=== PATIENT | female | born 1960 | race Caucasian/White ===

== ENCOUNTER → 2016-12-23 16:20 | Outpatient (CLI) | payer OTHER ==
[2015-02-12 07:42] VITALS: BMI 22.3
[~2016-12-23 16:20] MED LIST: CYCLOBENZAPRINE10 MG PO; ESTRACE1 MG PO; KLONOPIN0.5 MG PO; LAMICTAL100 MG PO; LAMICTAL200 MG PO; LOTREL 10-40 M1 EACH PO; PROZAC40 MG PO
== END | disposition home or self-care (01) ==
LOC: D.MAMMO 14:30
DX: Z12.31 Encounter for screening mammogram for malignant neoplasm of breast (principal)

== ENCOUNTER 2017-01-08 07:24 | Emergency (ER) | payer OTHER ==
[2015-02-12 07:42] VITALS: BMI 22.3
[2017-01-08 08:15] LABS: APPEARANCE HAZY (CLEAR); BACTERIA MODERATE /hpf (NONE SEEN); BILIRUBIN NEGATIVE (NEGATIVE); COLOR DK YELLOW (YELLOW); GLUCOSE NEGATIVE (NEGATIVE); KETONE NEGATIVE (NEGATIVE); LEUKOCYTE ESTERASE TRACE (NEGATIVE); MUCUS <1+ /lpf (NONE SEEN); NITRITE NEGATIVE (NEGATIVE); PROTEIN 1+ mg/dL (NEGATIVE); RED CELLS - URINE 0-5 /hpf (0-5); SPECIFIC GRAVITY 1.015 (1.005-1.020); UROBILINOGEN NORMAL (NORMAL)
[2017-01-08 08:24] LABS: BASOPHILS 0.2 % (0-2); EOSINOPHILS 0.8 % (0-7); HEMATOCRIT 41.6 % (36.0-48.0); HEMOGLOBIN 13.8 g/dL (12-16); IMMATURE GRANULOCYTES 0.2 % (0-5); MCH 32.4 pg (26.0-34.0); MCHC 33.2 g/dL (31.0-37.0); MCV 97.7 fL (80.0-100.0); MEAN PLATELET VOLUME 10.6 fL (7.4-10.4); MONOCYTES 5.8 % (2-11); PLATELET COUNT 279 10x3/uL (130-400); RBC 4.26 10x6/uL (4.00-5.40); RDW 13.6 % (11.5-14.5)
[2017-01-08 08:39] LABS: ALBUMIN 3.8 g/dL (3.4-5.0); BILIRUBIN - TOTAL 0.29 mg/dL (0.2-1.3); CARBON DIOXIDE 24.7 mmol/L (21.0-32.0); CREATININE - SERUM 1.1 mg/dL (0.6-1.3); POTASSIUM - SERUM 3.7 mmol/L (3.5-5.1); PROTEIN - SERUM 7.5 g/dL (6.4-8.2)
== END 2017-01-08 09:37 | disposition home or self-care (01) ==
LOC: D.ER 07:24
PROVIDERS: Emergency Medicine
DX: K29.00 Acute gastritis without bleeding (principal); I10 Essential (primary) hypertension; F17.200 Nicotine dependence, unspecified, uncomplicated

== ENCOUNTER → 2017-01-13 12:52 | Outpatient (CLI) | payer MEDICARE ==
[2015-02-12 07:42] VITALS: BMI 22.3
== END | disposition home or self-care (01) ==
LOC: D.CT 12:52
DX: R10.9 Unspecified abdominal pain (principal)

== ENCOUNTER → 2017-01-30 17:00 | Outpatient (CLI) | payer MEDICARE ==
[2015-02-12 07:42] VITALS: BMI 22.3
== END | disposition home or self-care (01) ==
LOC: D.MAMMO 14:00
DX: R92.8 Other abnormal and inconclusive findings on diagnostic imaging of breast (principal)

== ENCOUNTER 2017-11-16 13:57 | Emergency (ER) | payer MEDICARE ==
[2015-02-12 07:42] VITALS: BMI 22.3
[2017-11-16 14:36] LABS: BASOPHILS 0.1 % (0-2); EOSINOPHILS 0.5 % (0-7); HEMATOCRIT 38.9 % (36.0-48.0); HEMOGLOBIN 13.2 g/dL (12-16); IMMATURE GRANULOCYTES 0.3 % (0-5); LYMPHOCYTES 15.9 % (15-50); MCH 31.7 pg (26.0-34.0); MCHC 33.9 g/dL (31.0-37.0); MCV 93.5 fL (80.0-100.0); MEAN PLATELET VOLUME 10.8 fL (7.4-10.4); MONOCYTES 7.7 % (2-11); NEUTROPHILS 75.5 % (40-80); PLATELET COUNT 303 10x3/uL (130-400); RBC 4.16 10x6/uL (4.00-5.40); RDW 13.9 % (11.5-14.5); WBC 17.2 10x3/uL (4.8-10.8)
[2017-11-16 14:52] LABS: ALBUMIN 3.7 g/dL (3.4-5.0); ANION GAP 13.3 mmol/L (8-16); BILIRUBIN - TOTAL 0.4 mg/dL (0.2-1.3); CARBON DIOXIDE 26.8 mmol/L (21.0-32.0); CREATININE - SERUM 1.1 mg/dL (0.6-1.3); POTASSIUM - SERUM 3.1 mmol/L (3.5-5.1); PROTEIN - SERUM 7.2 g/dL (6.4-8.2)
[2017-11-16 15:01] LABS: APPEARANCE CLOUDY (CLEAR); BILIRUBIN NEGATIVE (NEGATIVE); COLOR YELLOW (YELLOW); GLUCOSE NEGATIVE (NEGATIVE); KETONE NEGATIVE (NEGATIVE); NITRITE NEGATIVE (NEGATIVE); PROTEIN TRACE mg/dL (NEGATIVE); SPECIFIC GRAVITY 1.005 (1.005-1.020); UROBILINOGEN NORMAL (NORMAL)
[2017-11-16 15:03] LABS: BACTERIA FEW /hpf (NONE SEEN); RED CELLS - URINE 0-5 /hpf (0-5)
[2017-11-16 15:11] LABS: UDS - AMPHET NEGATIVE QUAL (NEGATIVE); UDS - BARB NEGATIVE QUAL (NEGATIVE); UDS - BENZO POSITIVE QUAL (NEGATIVE); UDS - COCAINE NEGATIVE QUAL (NEGATIVE); UDS - OPIATE POSITIVE QUAL (NEGATIVE); UDS - PCP NEGATIVE QUAL (NEGATIVE); UDS - THC NEGATIVE QUAL (NEGATIVE)
[2017-11-16 16:04] LABS: CREATINE KINASE 50 UL (21-215); LIPASE 97 U/L (73-393); PRO BNP 977 pg/mL (0-125); TROPONIN-I < 0.017 ng/mL (0.000-0.060)
== END 2017-11-16 15:59 | disposition home or self-care (01) ==
LOC: D.ER 13:57
PROVIDERS: Family Medicine
DX: T67.5XXA Heat exhaustion, unspecified, initial encounter (principal); X58.XXXA Exposure to other specified factors, initial encounter; Y93.9 Activity, unspecified; Y92.9 Unspecified place or not applicable; R53.1 Weakness; I10 Essential (primary) hypertension

== ENCOUNTER 2019-12-01 15:03 | Emergency (ER) | payer MEDICARE ==
[~2019-12-01] VITALS: Ht 170.2 cm; Wt 67.7 kg
[2019-12-01 15:08] VITALS: Ht 170.2 cm; Wt 67.7 kg
[2019-12-01] MEDS ORDERED: LAMICTAL200 M1 PO (15:10)
[2019-12-01] MEDS ORDERED: OMEPRAZOLE40 MG PO (15:11)
[2019-12-01] MEDS ORDERED: BACLOFEN20 M1 PO (15:11)
[2019-12-01] MEDS ORDERED: NEURONTIN 300300 MG PO (15:12)
[2019-12-01] MEDS ORDERED: FEXOFENADINE H180 MG PO (15:12)
[2019-12-01] MEDS ORDERED: FOLIC ACID1 MG PO (15:12)
[2019-12-01] MEDS ORDERED: HYDROCODON-ACE1 EA10 PO (15:12)
[2019-12-01] MEDS ORDERED: PHENERGAN25 M1 PO (15:13)
[2019-12-01] MEDS ORDERED: TREXALL5 MG SQ (15:14)
[2019-12-01] MEDS ORDERED: DIFLUCAN150 MG PO (15:14)
[2019-12-01] MEDS ORDERED: CARAFATE1 G PO (15:14)
[2019-12-01] MEDS ORDERED: LASIX40 MG PO (15:15)
[2019-12-01] MEDS ORDERED: AUGMENTIN 875-11 TAB PO (15:15)
[2019-12-01] MEDS ORDERED: ALBUTEROL SULF8.5 GM INH (15:15)
[2019-12-01] MEDS ORDERED: KLOR-CON M2020 MEQ PO (15:16)
[2019-12-01 15:33] LABS: BASOPHILS 0.3 % (0-2); EOSINOPHILS 1.7 % (0-7); HEMATOCRIT 39.7 % (36.0-48.0); HEMOGLOBIN 12.7 g/dL (12-16); IMMATURE GRANULOCYTES 0.2 % (0-5); MCH 30.9 pg (26.0-34.0); MCV 96.6 fL (80.0-100.0); MEAN PLATELET VOLUME 10.1 fL (7.4-10.4); MONOCYTES 6.8 % (2-11); PLATELET COUNT 295 10x3/uL (130-400); RBC 4.11 10x6/uL (4.00-5.40); RDW 14.3 % (11.5-14.5); WBC 8.6 10x3/uL (4.8-10.8)
[2019-12-01 15:48] LABS: CALC OSMOLALITY 279 mosm/kg (275-300); CALCIUM 9.2 mg/dL (8.5-10.1); CARBON DIOXIDE 26.4 mmol/L (21.0-32.0); CHLORIDE - SERUM 104 mmol/L (98-107); CREATININE - SERUM 0.7 mg/dL (0.6-1.3); GLUCOSE 102 mg/dL (74-106); POTASSIUM - SERUM 3.7 mmol/L (3.5-5.1); SODIUM 141 mmol/L (136-145); UREA NITROGEN 9 mg/dL (7-18); eGFR NON AFRICAN AMERICAN 90 mL/min (90-120)
[2019-12-01 15:51] LABS: INR 0.95 (0.85-1.17); PROTIME 12.6 SECONDS (11.6-15.0)
[2019-12-01 16:01] LABS: ALBUMIN 3.7 g/dL (3.4-5.0); ALKALINE PHOSPHATASE 68 U/L (30-120); ALT (SGPT) 17 U/L (10-68); BILIRUBIN - TOTAL 0.29 mg/dL (0.2-1.3); PRO BNP 537 pg/mL (0-125); PROTEIN - SERUM 7.5 g/dL (6.4-8.2)
[2019-12-01 16:09] LABS: CKMB 1.1 U/L (0.0-3.6); CREATINE KINASE 123 UL (21-215); TROPONIN-I 0.016 ng/mL (0.000-0.060)
[2019-12-01 17:57] VITALS: BP 130/78
== END 2019-12-01 17:58 | disposition home or self-care (01) ==
LOC: D.ER 15:03
PROVIDERS: Family Medicine
DX: R19.00 Intra-abdominal and pelvic swelling, mass and lump, unspecified site (principal); R60.0 Localized edema; I10 Essential (primary) hypertension; Z72.0 Tobacco use

== ENCOUNTER 2019-12-07 14:52 | Observation (INO) | payer MEDICARE ==
[~2019-12-07] VITALS: Ht 170.2 cm; Wt 81.8 kg
[~2019-12-07 14:52] MED LIST changes: +ALBUTEROL SULF8.5 GM INH; +AUGMENTIN 875-11 TAB PO; +BACLOFEN20 M1 PO; +CARAFATE1 G PO; +DIFLUCAN150 MG PO; +FEXOFENADINE H180 MG PO; +FOLIC ACID1 MG PO; +HYDROCODON-ACE1 EA10 PO; +KLOR-CON M2020 MEQ PO; +LAMICTAL200 M1 PO; +LASIX40 MG PO; +NEURONTIN 300300 MG PO; +OMEPRAZOLE40 MG PO; +PHENERGAN25 M1 PO; +TREXALL5 MG SQ
--- NOTE | 2019-12-07 15:30 | NUR ---
PT LEFT ED VIA STRETCHER FOR CT.
[2019-12-07 15:32] LABS: BASOPHILS 0.2 % (0-2); EOSINOPHILS 1.3 % (0-7); HEMATOCRIT 36.9 % (36.0-48.0); HEMOGLOBIN 11.9 g/dL (12-16); IMMATURE GRANULOCYTES 0.2 % (0-5); LYMPHOCYTES 24.6 % (15-50); MCHC 32.2 g/dL (31.0-37.0); MCV 96.1 fL (80.0-100.0); MEAN PLATELET VOLUME 10.4 fL (7.4-10.4); MONOCYTES 7.4 % (2-11); NEUTROPHILS 66.3 % (40-80); PLATELET COUNT 312 10x3/uL (130-400); RBC 3.84 10x6/uL (4.00-5.40); RDW 14.2 % (11.5-14.5); WBC 9.8 10x3/uL (4.8-10.8)
[2019-12-07 15:41] LABS: APTT 32.4 SECONDS (22.8-39.4); INR 0.97 (0.85-1.17); PROTIME 12.8 SECONDS (11.6-15.0)
--- NOTE | 2019-12-07 15:44 | NUR ---
PT RETURNED TO ED VIA STRETCHER FROM CT
[2019-12-07 15:59] LABS: ALBUMIN 3.9 g/dL (3.4-5.0); ALKALINE PHOSPHATASE 62 U/L (30-120); ALT (SGPT) 16 U/L (10-68); BILIRUBIN - TOTAL 0.32 mg/dL (0.2-1.3); CALC OSMOLALITY 275 mosm/kg (275-300); CALCIUM 9.6 mg/dL (8.5-10.1); CARBON DIOXIDE 24.6 mmol/L (21.0-32.0); CHLORIDE - SERUM 102 mmol/L (98-107); CKMB 0.8 U/L (0.0-3.6); CREATINE KINASE 48 UL (21-215); CREATININE - SERUM 1.1 mg/dL (0.6-1.3); GLUCOSE 109 mg/dL (74-106); MAGNESIUM - SERUM 2.1 mg/dL (1.8-2.4); PRO BNP 154 pg/mL (0-125); PROTEIN - SERUM 7.4 g/dL (6.4-8.2); SODIUM 137 mmol/L (136-145); TROPONIN-I < 0.017 ng/mL (0.000-0.060); UREA NITROGEN 15 mg/dL (7-18); eGFR NON AFRICAN AMERICAN 54 mL/min (90-120)
[2019-12-07 16:04] LABS: POTASSIUM - SERUM 2.8 mmol/L (3.5-5.1)
--- NOTE | 2019-12-07 16:29 | NUR ---
IN/OUT CATH PERFORMED. PT TOLERATED WELL. URINE SENT TO LAB
[2019-12-07 16:30] LABS: BILIRUBIN NEGATIVE (NEGATIVE); GLUCOSE NEGATIVE (NEGATIVE); KETONE NEGATIVE (NEGATIVE); NITRITE NEGATIVE (NEGATIVE); UROBILINOGEN NORMAL (NORMAL)
--- NOTE | 2019-12-07 17:13 | NUR ---
PT LEFT ED VIA STRETCHER FOR CTA
--- NOTE | 2019-12-07 17:29 | NUR ---
PT RETURNED TO ED VIA STRETCHER.
--- NOTE | 2019-12-07 18:54 | NUR ---
PT IS ASKING FOR A CATHETER [facility] [employer], EXPLAINED THAT PASCUAL WILL NEED TO SEE HER FIRST AND THEN RESTART MEDICATIONS. FAR A CATHETER, PT KNOW WHEN SHE NEEDS TO GO AND I CAN NOT JUSTIFY A REASON FOR A CATHETER, CONTINUE WITH PLAN OF CARE
[2019-12-07 20:00] VITALS: BP 115/72
[2019-12-07 20:27] LABS: % SATURATION 8 % (15-55); IRON 31 ug/dl (35-150); TOTAL IRON BIND CAPACITY 348 ug/dl (260-445); UNSAT IRON BIND CAPACITY 317 ug/dl (150-375)
[2019-12-08] VITALS (7 sets, daily range): BP systolic 98–149; BP diastolic 57–76; Ht 170.2 cm; Wt 81.8 kg
--- NOTE | 2019-12-08 01:16 | NUR ---
PATIENT COMPLAINING OF URINE RETENTION AND URINE LEAKING WHEN NOT TRYING TO PEE. PATIENT HAS HAD ANOUT 50ML OF URINE OUTPUT VIA EXTERNAL FEMALE CATHETER SINCE 190. CALL DOCTOR AND RECIEVED ORDERS TO PUT IN PINA CATHETER. 900ML INITIAL OUTPUT. WILL CONTINUE TO MONITOR.
[2019-12-08 04:46] LABS: UDS - AMPHET NEGATIVE QUAL (NEGATIVE); UDS - BARB NEGATIVE QUAL (NEGATIVE); UDS - BENZO NEGATIVE QUAL (NEGATIVE); UDS - COCAINE NEGATIVE QUAL (NEGATIVE); UDS - OPIATE POSITIVE QUAL (NEGATIVE); UDS - PCP NEGATIVE QUAL (NEGATIVE); UDS - THC NEGATIVE QUAL (NEGATIVE)
[2019-12-08 05:14] LABS: BASOPHILS 0.4 % (0-2); HEMATOCRIT 34.4 % (36.0-48.0); HEMOGLOBIN 10.9 g/dL (12-16); LYMPHOCYTES 46.2 % (15-50); MCH 30.7 pg (26.0-34.0); MCHC 31.7 g/dL (31.0-37.0); MCV 96.9 fL (80.0-100.0); MEAN PLATELET VOLUME 10.7 fL (7.4-10.4); MONOCYTES 8.5 % (2-11); NEUTROPHILS 41.9 % (40-80); PLATELET COUNT 273 10x3/uL (130-400); RBC 3.55 10x6/uL (4.00-5.40); RDW 14.2 % (11.5-14.5)
[2019-12-08 05:27] LABS: WBC 7.3 10x3/uL (4.8-10.8)
[2019-12-08 05:48] LABS: ALBUMIN 3.1 g/dL (3.4-5.0); ALKALINE PHOSPHATASE 46 U/L (30-120); ALT (SGPT) 14 U/L (10-68); BILIRUBIN - TOTAL 0.28 mg/dL (0.2-1.3); CALC OSMOLALITY 280 mosm/kg (275-300); CALCIUM 8.2 mg/dL (8.5-10.1); CARBON DIOXIDE 27.4 mmol/L (21.0-32.0); CHLORIDE - SERUM 109 mmol/L (98-107); CKMB 0.9 U/L (0.0-3.6); CREATINE KINASE 150 UL (21-215); CREATININE - SERUM 0.9 mg/dL (0.6-1.3); GLUCOSE 86 mg/dL (74-106); POTASSIUM - SERUM 3.2 mmol/L (3.5-5.1); PROTEIN - SERUM 5.9 g/dL (6.4-8.2); SODIUM 142 mmol/L (136-145); TROPONIN-I 0.024 ng/mL (0.000-0.060); eGFR NON AFRICAN AMERICAN 68 mL/min (90-120)
[2019-12-08 05:49] LABS: UREA NITROGEN 10 mg/dL (7-18)
--- NOTE | 2019-12-08 11:10 | NUR ---
Pt Awake A&O X4 watching tv. Pt. complains of 7/10 pain, in right shoulder and neck. Gave pain meds and educated pt. about next dose per MD. PIV in L AC infusing NS and 20k+ @ 125ml/hr. Has FC, patent to gravity, draining clear, yellow, odorless urine. Pt states that weakness is improved from yesterday in all extremities. Demonstrates ability to lift arms and legs. 3/5 director of infection control strength, limited ROM in all extremities. Pt. is wearing SCDs. Pt was tearful and expressed concern about health declining and limited abilities. Bed low. CL in reach. Pt. verbalized understanding and denies needs. Will CTM.
--- NOTE | 2019-12-08 15:40 | NUR ---
SPOKE WITH SEPIDEH CANAS APN REGARDING PT POTASSIUM LEVEL AND DISCHARGE PLANS. REMINDED SEPIDEH OF PT BEING CATHED DUE TO URINARY RETENTION LAST NIGHT. SEPIDEH STATED TO HOLD D/C UNTIL TOMORROW, START BLADDER TRAINING WITH F/C AND D/C F/C.
--- NOTE | 2019-12-08 18:10 | NUR ---
1720 unclamped FC for bladder training. 1805 output was 400ml, clear, yellow, odorless urine. 1810 clamped FC for bladder training.
[2019-12-09 00:16] VITALS: BP 147/69
--- NOTE | 2019-12-09 00:30 | NUR ---
IV L AC INFILTRATED. FIRST ATTEMPT TO PLACE IV IN R FA SUCCESSFUL. 22G IN R FA W/ NS W/20K@75.
[2019-12-09 04:38] LABS: BASOPHILS 0.2 % (0-2); EOSINOPHILS 2.4 % (0-7); HEMATOCRIT 39.3 % (36.0-48.0); HEMOGLOBIN 12.4 g/dL (12-16); IMMATURE GRANULOCYTES 0.3 % (0-5); MCH 30.5 pg (26.0-34.0); MCHC 31.6 g/dL (31.0-37.0); MCV 96.8 fL (80.0-100.0); MEAN PLATELET VOLUME 11.2 fL (7.4-10.4); MONOCYTES 7.3 % (2-11); NEUTROPHILS 64.8 % (40-80); PLATELET COUNT 318 10x3/uL (130-400); RBC 4.06 10x6/uL (4.00-5.40); RDW 14.1 % (11.5-14.5)
[2019-12-09 05:03] LABS: WBC 12.5 10x3/uL (4.8-10.8)
[2019-12-09 05:13] LABS: ALBUMIN 3.5 g/dL (3.4-5.0); ALKALINE PHOSPHATASE 63 U/L (30-120); BILIRUBIN - TOTAL 0.18 mg/dL (0.2-1.3); CALCIUM 8.9 mg/dL (8.5-10.1); CARBON DIOXIDE 25.3 mmol/L (21.0-32.0); CHLORIDE - SERUM 107 mmol/L (98-107); CREATININE - SERUM 0.8 mg/dL (0.6-1.3); GLUCOSE 95 mg/dL (74-106); MAGNESIUM - SERUM 1.9 mg/dL (1.8-2.4); POTASSIUM - SERUM 3.5 mmol/L (3.5-5.1); PROTEIN - SERUM 7.2 g/dL (6.4-8.2); SODIUM 142 mmol/L (136-145); eGFR NON AFRICAN AMERICAN 77 mL/min (90-120)
[2019-12-09 05:22] LABS: ALT (SGPT) 19 U/L (10-68); CALC OSMOLALITY 279 mosm/kg (275-300); UREA NITROGEN 3 mg/dL (7-18)
[2019-12-09 06:17] VITALS: BP 127/74
[2019-12-09 08:11] VITALS: BP 138/90
--- NOTE | 2019-12-09 08:23 | NUR ---
SHE IS C/O NAUSEA, SHE STATES "I WAS DOING THIS AT HOME TOO". NO NEW ISSUES. THE CALL LIGHT WITHIN REACH.
[2019-12-09] MEDS ORDERED: OMEPRAZOLE40 MG PO (10:36)
--- NOTE | 2019-12-09 10:56 | NUR ---
SHE WANTED HER IV OUT. I REMOVED HER PIV. SHE HAS DISCHARGE ORDERS NOW.
--- NOTE | 2019-12-09 11:43 | NUR ---
OT NOTE: PT REFUSES OT EVAL; PT STATES THAT SHE IS DOING FINE AND PLANNING TO GO HOME TODAY. STATES THAT SHE IS AMBULATING IN ROOM AND IS NO LONGER HAVING ANY PROBLEMS. OSIEL VANEGAS, OTR/L
--- NOTE | 2019-12-09 15:15 | NUR ---
SHE WAS TAKEN DOWNSTRAIRS VIA WHEELCHAIR. PAPER WORK GONE OVER WITH, QUESTIONS ANSWERED.
== END 2019-12-09 15:16 | disposition home or self-care (01) ==
LOC: D.ER 14:52 → D.MS 17:00 → OBSVTIME 17:24 → D.MS 12-09 15:16
PROVIDERS: Emergency Medicine; Family Medicine; ADMIT Family Medicine; ATTEND Family Medicine
DX: E87.6 Hypokalemia (principal); R53.1 Weakness; R42 Dizziness and giddiness; D64.9 Anemia, unspecified; I10 Essential (primary) hypertension; I35.1 Nonrheumatic aortic (valve) insufficiency; E78.5 Hyperlipidemia, unspecified; K21.9 Gastro-esophageal reflux disease without esophagitis; M85.80 Other specified disorders of bone density and structure, unspecified site; F31.9 Bipolar disorder, unspecified; M79.7 Fibromyalgia; L40.50 Arthropathic psoriasis, unspecified; G62.9 Polyneuropathy, unspecified

== ENCOUNTER 2020-09-08 10:15 | Outpatient (CLI) | payer MEDICARE ==
[2019-12-08 04:12] VITALS: BMI 28.2
== END 2020-09-08 10:45 | disposition home or self-care (01) ==
LOC: D.MAMMO 10:15
PROVIDERS: ATTEND Family Medicine
DX: Z12.31 Encounter for screening mammogram for malignant neoplasm of breast (principal)